=== PATIENT | female | born 1995 | race Caucasian/White ===

== ENCOUNTER 2023-03-11 14:57 | Emergency (ER) | payer OTHER ==
[~2023-03-11] VITALS: Ht 165.1 cm; Wt 106.9 kg
[2023-03-11] MEDS ORDERED: RITA5TAB PO (15:06)
[2023-03-11] MEDS ORDERED: HYDR100C PO (15:06)
[2023-03-11] MEDS ORDERED: BUPR15TASR PO (15:06)
[2023-03-11] MEDS ORDERED: FLUV50TA PO (15:06)
[2023-03-11] MEDS ORDERED: STRA80CA PO (15:06)
[2023-03-11 17:02] VITALS: BP 142/93; TEMP 99.2; O2SAT 100
[2023-03-11 18:14] LABS: BASO # 0.1 10^3/uL (0.0-0.2); BASO % 1.3 % (0.0-1.0); EOS # 0.2 10^3/uL (0.0-0.5); EOS % 1.7 % (0.0-3.0); HEMATOCRIT 38.4 % (36.0-47.0); HEMOGLOBIN 13.2 g/dl (12.0-15.5); LYMPH # 3.5 10^3/uL (1.5-5.0); LYMPH % 34.7 % (24.0-44.0); MEAN CORPUSCULAR HEMOGLOBIN 30.8 pg (27.0-33.0); MEAN CORPUSCULAR HGB CONC 34.4 g/dl (32.0-36.5); MEAN CORPUSCULAR VOLUME 89.7 fl (80.0-96.0); MONO # 0.8 10^3/uL (0.0-0.8); MONO % 7.7 % (2.0-8.0); NEUTROPHILS # 5.4 10^3/uL (1.5-8.5); PLATELET COUNT, AUTOMATED 307 10^3/uL (150-450); RED BLOOD COUNT 4.28 10^6/uL (4.00-5.40)
[2023-03-11 18:23] LABS: LIPASE 52 U/L (12-53)
[2023-03-11 18:25] LABS: ALBUMIN 3.8 G/DL (3.2-5.2); ALKALINE PHOSPHATASE 85 U/L (46-116); ALT/SGPT 29 U/L (7.0-40); AST/SGOT 11 U/L (<34); BILIRUBIN,DIRECT < 0.1 MG/DL (<0.4); BILIRUBIN,TOTAL < 0.2 MG/DL (0.3-1.2); BLOOD UREA NITROGEN 10 MG/DL (9-23); CARBON DIOXIDE LEVEL 23 MMOL/L (20-31); CHLORIDE LEVEL 107 MMOL/L (98-107); CREATININE FOR GFR 0.58 MG/DL (0.55-1.30); GLOMERULAR FILTRATION RATE > 60.0 (>60); GLUCOSE, FASTING 103 MG/DL (60-100); POTASSIUM SERUM 4.1 MMOL/L (3.5-5.1); SODIUM LEVEL 139 MMOL/L (136-145)
[2023-03-11 19:06] LABS: AMORPHOUS SEDIMENT SMALL (NEGATIVE); APPEARANCE, URINE CLOUDY (CLEAR); BACTERIA, URINE AUTO NEGATIVE (NEGATIVE); BILIRUBIN, URINE AUTO NEGATIVE (NEGATIVE); BLOOD, URINE BLOOD 3+ (NEGATIVE); COLOR, URINE YELLOW (YELLOW); GLUCOSE, URINE (UA) AUTO NEGATIVE (NEGATIVE); KETONE, URINE AUTO NEGATIVE (NEGATIVE); LEUKOCYTE ESTERASE, URINE AUTO 3+ (NEGATIVE); MUCUS, URINE SMALL (NEGATIVE); NITRITE, URINE AUTO NEGATIVE (NEGATIVE); PROTEIN, URINE AUTO 1+ mg/dL (NEGATIVE); RBC, URINE AUTO 19 /HPF (0-3); SPECIFIC GRAVITY URINE AUTO 1.018 (1.002-1.035); SQUAMOUS EPITHELIAL CELL UR AU 8 /HPF (0-6); UROBILINOGEN, URINE AUTO 0.2 mg/dL (0.0-2.0); WBC, URINE AUTO 23 /HPF (0-3)
== END 2023-03-11 19:05 | disposition home or self-care (01) ==
LOC: M ED 14:57
DX: K80.70 Calculus of gallbladder and bile duct without cholecystitis without obstruction (principal)

== ENCOUNTER → 2023-10-24 | Outpatient (CLI) | payer OTHER ==
[~2023-10-24] MED LIST: BUPR15TASR PO; FLUV50TA PO; HYDR100C PO; RITA5TAB PO; STRA80CA PO
[2023-10-24 15:44] LABS: URIC ACID 7.2 MG/DL (3.1-7.8)
[2023-10-24 15:46] LABS: CORTISOL AM 6.2 UG/DL (4.3-22.4)
[2023-10-24 15:48] LABS: MONO REFLEX EBV COMP NEGATIVE (NEGATIVE); PTH INTACT 59.6 PG/ML (18.5-88.0)
[2023-10-24 15:49] LABS: FREE T4 0.95 NG/DL (0.89-1.76)
[2023-10-24 15:50] LABS: RHEUMATOID FACTOR QUANT 5.5 IU/ML (<14)
== END ==
LOC: M PLALAB 12:34
PROVIDERS: ATTEND Family Medicine
DX: R53.83 Other fatigue (principal)

== ENCOUNTER → 2023-12-05 | Outpatient (CLI) | payer OTHER | LOC: M SLEEP HO 11:32 | PROVIDERS: ATTEND Nurse Practitioner Adult Health | DX: R53.83 Other fatigue (principal) ==

== ENCOUNTER → 2024-04-02 | Outpatient (CLI) | payer OTHER ==
[2024-04-02 15:36] LABS: THYROID STIMULATING HORMONE 1.176 uIU/ML (0.55-4.78)
[2024-04-02 15:37] LABS: FREE T4 0.98 NG/DL (0.89-1.76); PROLACTIN 8.71 NG/ML
== END ==
LOC: M PLALAB 13:54
PROVIDERS: ATTEND Nurse Practitioner Adult Health
DX: O92.70 Unspecified disorders of lactation (principal)